=== PATIENT | female | born 1995 | race Two or more races ===

== ENCOUNTER 2023-12-18 21:50 | Inpatient (IN) | payer OTHER ==
[~2023-12-18] VITALS: Ht 172.7 cm; Wt 98.8 kg
[2023-12-18 22:39] LABS: Basophils # (auto) 0.2 10 ^3/uL (0-0.2); Basophils % (auto) 1.4 % (0.0-2.0); Eosinophils # (auto) 0 10 ^3/uL (0-0.8); Eosinophils % (auto) 0.4 % (0.0-7.0); Hematocrit 38.2 % (36.0-46.0); Hemoglobin 13.2 g/dL (12.2-16.2); Lymphocytes # (auto) 1.1 10 ^3/uL (0.4-5.4); Lymphocytes % (auto) 8.8 % (10.0-50.0); Mean Corpuscular Hemoglobin 30.8 pg (28.0-32.0); Mean Corpuscular Hgb Conc. 34.7 g/dL (32.0-36.0); Mean Corpuscular Volume 88.8 fL (80.0-100.0); Monocytes # (auto) 0.6 10 ^3/uL (0-1.3); Monocytes % (auto) 4.4 % (0.0-12.0); Neutrophils # (auto) 10.6 10 ^3/uL (1.6-8.6); Red Cell Distribution Width 13.5 % (11.8-14.3); White Blood Cell 12.5 10^3/uL (4.4-10.8)
[2023-12-18 22:51] LABS: Alanine Aminotransferase 53 U/L (7-40); Albumin 4.5 g/dL (3.2-4.8); Alkaline Phosphatase 149 U/L (46-116); Anion Gap 6 (5-15); Aspartate Aminotransferase 13 U/L (13-40); BUN/Creatinine Ratio 12.3 (10.0-20.0); Bilirubin, Total 0.4 mg/dL (0.2-1.0); Blood Urea Nitrogen 9 mg/dL (9-23); Calcium 9.7 mg/dL (8.5-10.1); Carbon Dioxide 24 mmol/L (20-30); Chloride 109 mmol/L (98-107); Glucose 104 mg/dL (74-106); Potassium 4.1 mmol/L (3.5-5.1); Sodium 139 mmol/L (136-145); Total Protein 7.4 g/dL (5.7-8.2)
[2023-12-18] MEDS: ALBUTEROL SULF 2.5 MG/0.5ML(0.5%) NEB SOLN NEB ONE (23:01)
[2023-12-18] MEDS: IPRATROPIUM BROM 0.5 MG/2.5ML INH SOL NEB ONE (23:01)
[2023-12-19] VITALS (16 sets, daily range): BP systolic 111–137; BP diastolic 58–80; PULSE 90–134; RESP 16–22; TEMP 97.5–98.7; O2SAT 91–98
[2023-12-19] MEDS: IPRATROPIUM BROM 0.5 MG/2.5ML INH SOL NEB ONE (02:42)
[2023-12-19] MEDS: ALBUTEROL SULF 2.5 MG/0.5ML(0.5%) NEB SOLN NEB ONE (02:42)
[2023-12-19] MEDS: methylPREDNISolone SOD SUCC 125 MG/2 ML VL IV ONE (03:35)
[2023-12-19] MEDS: ONDANSETRON HCL 4 MG/2 ML VIAL IV ONE (03:35)
[2023-12-19 03:40] LABS: COVID19 ANTIGEN SOFIA FIA NEGATIVE (NEGATIVE); Rapid Influenza A Negative (Negative); Rapid Influenza B Negative (Negative)
[2023-12-19] MEDS ORDERED: NITROGLYCERIN 0.4 MG SL TAB SL PRN (06:15)
[2023-12-19] MEDS ORDERED: MORPHINE SULFATE INJ 2 MG/ml SYRG IV PRN (06:15)
[2023-12-19] MEDS ORDERED: TEMAZEPAM 15 MG CAP PO PRN (06:15)
[2023-12-19] MEDS: ALBUTEROL SULF 2.5 MG/0.5ML(0.5%) NEB SOLN NEB PRN (06:57)
[2023-12-19] MEDS: IPRATROPIUM BROM 0.5 MG/2.5ML INH SOL NEB PRN (06:58)
[2023-12-19] MEDS: guaiFENesin-DM 100/10mg/5ml SYR PO PRN (07:05)
[2023-12-19] MEDS ORDERED: ALBUAER3 IN (08:58)
[2023-12-19] MEDS ORDERED: MONT-8 PO (08:58)
[2023-12-19] MEDS ORDERED: LEVOTAB51 PO (08:58)
[2023-12-19] MEDS ORDERED: BENZ100C97 PO (08:58)
[2023-12-19] MEDS: methylPREDNISolone SOD SUCC 40 MG/ML VL IV SCH (09:47)
[2023-12-19 10:21] LABS: Hepatitis B Surface Antigen Negative (Negative)
[2023-12-19 10:42] LABS: Hepatitis C Antibody Negative (Negative)
[2023-12-19] MEDS ORDERED: QUET200T45 PO (14:45)
[2023-12-19] MEDS ORDERED: BUSP30TA PO (14:45)
[2023-12-19] MEDS ORDERED: SERT-160 PO (14:45)
[2023-12-19] MEDS: IPRATROPIUM BROM 0.5 MG/2.5ML INH SOL NEB SCH (18:24)
[2023-12-19] MEDS: ALBUTEROL SULF 2.5 MG/0.5ML(0.5%) NEB SOLN NEB SCH (18:24)
[2023-12-20] VITALS (14 sets, daily range): BP systolic 118–134; BP diastolic 55–70; PULSE 77–119; RESP 15–20; TEMP 97.7–98.1; O2SAT 90–100
[2023-12-20] MEDS: ONDANSETRON HCL 4 MG/2 ML VIAL IV PRN (04:30)
[2023-12-20 08:02] LABS: Chloride 107 mmol/L (98-107); Potassium 3.7 mmol/L (3.5-5.1); Sodium 140 mmol/L (136-145)
[2023-12-20 08:03] LABS: Anion Gap 9 (5-15); Carbon Dioxide 24 mmol/L (20-30)
[2023-12-20 08:04] LABS: Calcium 9.7 mg/dL (8.5-10.1)
[2023-12-20 08:09] LABS: Blood Urea Nitrogen 12 mg/dL (9-23); Glucose 107 mg/dL (74-106)
[2023-12-20] MEDS: methylPREDNISolone SOD SUCC 40 MG/ML VL IV SCH (08:36)
[2023-12-20] MEDS: busPIRone HCL 10 MG TAB PO SCH (08:36)
[2023-12-20] MEDS: MONTELUKAST SODIUM 10 MG TAB PO SCH (08:36)
[2023-12-20] MEDS: SERTRALINE HCL 50 MG TAB PO SCH (08:37)
[2023-12-20] MEDS ORDERED: FLUT1AER3 IN (12:55)
[2023-12-20] MEDS ORDERED: ALBU0.084 NEB (12:55)
[2023-12-20] MEDS: ACETAMINOPHEN 325 MG TAB PO PRN (20:43)
[2023-12-21] VITALS (21 sets, daily range): BP systolic 126–133; BP diastolic 65–85; PULSE 78–118; RESP 16–20; TEMP 97.6–98.7; O2SAT 90–100
[2023-12-21] MEDS: IOHEXOL 350 MG/ML 100ML IJ ONE (12:30)
[2023-12-22] VITALS (12 sets, daily range): BP systolic 118–131; BP diastolic 63–86; PULSE 80–131; RESP 16–86; TEMP 97.8–98.7; O2SAT 90–100
[2023-12-22] MEDS ORDERED: PRED20TA2 PO (08:47)
== END 2023-12-22 14:00 | disposition home or self-care (01) | DRG 189 ==
LOC: ER 21:50 → TELE 12-19 06:13 → TELE-CENTR 12-19 08:32 → CENTRAL 12-20 19:49
PROVIDERS: ADMIT Nurse Practitioner Acute Care; ATTEND Nurse Practitioner Acute Care
DX: J96.21 Acute and chronic respiratory failure with hypoxia (principal); J45.901 Unspecified asthma with (acute) exacerbation; R65.10 Systemic inflammatory response syndrome (SIRS) of non-infectious origin without acute organ dysfunction; F20.9 Schizophrenia, unspecified; F32.9 Major depressive disorder, single episode, unspecified; F41.9 Anxiety disorder, unspecified; Z20.822 Contact with and (suspected) exposure to COVID-19; E66.01 Morbid (severe) obesity due to excess calories; Z82.5 Family history of asthma and other chronic lower respiratory diseases; Z82.49 Family history of ischemic heart disease and other diseases of the circulatory system; Z68.33 Body mass index [BMI] 33.0-33.9, adult
CPT/HCPCS: 36415; 70490; 71045; 71275; 80048; 80053; 83880; 84484; 85025; 86803; 87340; 87426; 87804; 94060; 94640; 96374; 96375; G0378; J2405

== ENCOUNTER 2024-01-18 15:27 | Inpatient (IN) | payer OTHER ==
[~2024-01-18] VITALS: Ht 172.7 cm; Wt 100.0 kg
[2024-01-18 05:02] VITALS: PULSE 72; RESP 16
[~2024-01-18 15:27] MED LIST: ALBU0.084 NEB; ALBUAER3 IN; BENZ100C97 PO; BUSP30TA PO; FLUT1AER3 IN; LEVOTAB51 PO; MONT-8 PO; PRED20TA2 PO; QUET200T45 PO; SERT-160 PO
[2024-01-18 15:45] VITALS: PULSE 99; RESP 15; O2SAT 94
[2024-01-18] MEDS: SODIUM CHLORIDE 0.9% 1,000 ML IV ONE (15:47)
[2024-01-18 16:15] LABS: Basophils # (auto) 0.1 10 ^3/uL (0-0.2); Basophils % (auto) 0.7 % (0.0-2.0); Eosinophils # (auto) 0.1 10 ^3/uL (0-0.8); Eosinophils % (auto) 1.3 % (0.0-7.0); Hematocrit 42.6 % (36.0-46.0); Hemoglobin 14.5 g/dL (12.2-16.2); Lymphocytes # (auto) 1.9 10 ^3/uL (0.4-5.4); Lymphocytes % (auto) 26.5 % (10.0-50.0); Mean Corpuscular Hemoglobin 29.2 pg (28.0-32.0); Mean Corpuscular Hgb Conc. 34.1 g/dL (32.0-36.0); Mean Corpuscular Volume 85.6 fL (80.0-100.0); Monocytes # (auto) 0.3 10 ^3/uL (0-1.3); Monocytes % (auto) 4.9 % (0.0-12.0); Neutrophils # (auto) 4.7 10 ^3/uL (1.6-8.6); Neutrophils % (auto) 66.6 % (37.0-80.0); Nucleated Red Blood Cells % 0.1 %; Red Blood Cells 4.97 10^6/uL (4.0-5.20); White Blood Cell 7.1 10^3/uL (4.4-10.8)
[2024-01-18 16:31] LABS: Chloride 106 mmol/L (98-107); Potassium 3.5 mmol/L (3.5-5.1); Sodium 137 mmol/L (136-145)
[2024-01-18 16:32] LABS: Anion Gap 8 (5-15); Carbon Dioxide 23 mmol/L (20-30)
[2024-01-18 16:33] LABS: Calcium 10.1 mg/dL (8.7-10.4)
[2024-01-18 16:37] LABS: Glucose 151 mg/dL (74-106)
[2024-01-18 16:38] LABS: BUN/Creatinine Ratio 11.5 (10.0-20.0); Blood Urea Nitrogen 10 mg/dL (9-23)
[2024-01-18] MEDS ORDERED: HYDROmorphone HCL 2 MG/ML VL/or syr IV PRN (18:00)
[2024-01-18] MEDS ORDERED: DOCUSATE SOD 100 MG CAP PO PRN (18:00)
[2024-01-18 20:43] LABS: Urine Bacteria None Seen /hpf (None Seen)
[2024-01-18 20:50] LABS: Urine Blood Negative /uL (Negative); Urine Clarity Turbid (Clear); Urine Color Light-Yellow (Yellow); Urine Hyaline Cast FEW /lpf (0 - 2); Urine Mucus FEW (None Seen); Urine Protein, UAD Negative (Negative); Urine Specific Gravity 1.011 (1.001-1.035); Urine Urobilinogen Normal (Negative); Urine WBC 2 /hpf (0 - 5); Urine pH 6.5 (5.0-9.0)
[2024-01-18] MEDS: IOHEXOL 350 MG/ML 100ML IJ ONE (21:37)
[2024-01-18] MEDS: SODIUM CHLOR 0.9% PF (SALINE LOCK) 10ML VIAL/SYR IV SCH (22:20)
[2024-01-19] VITALS (15 sets, daily range): BP systolic 119–126; BP diastolic 69–71; PULSE 70–103; RESP 16–22; TEMP 98.1–98.9; O2SAT 4–100
[2024-01-19] MEDS: ACETAMINOPHEN 325 MG TAB PO PRN (04:46)
[2024-01-19] MEDS: OMNIPAQUE 12mg/ml 500ml ORAL SOLUTION PO ONE (07:13)
[2024-01-19] MEDS: ENOXAPARIN SOD 40 MG/0.4 ML SYRINGE SC SCH (11:36)
[2024-01-19] MEDS: ALBUTEROL SULF 2.5 MG/0.5ML(0.5%) NEB SOLN NEB SCH (13:24)
[2024-01-19] MEDS: AZITHROMYCIN 500MG/ 250ML 250 ML IV ONE (15:03)
[2024-01-19] MEDS: cefTRIAXone 1GM/50ML D5W 50 ML IV ONE (17:39)
[2024-01-19] MEDS: HYDROcodone-ACET 5/325MG TAB PO PRN (20:45)
[2024-01-20] VITALS (21 sets, daily range): BP systolic 108–142; BP diastolic 67–82; PULSE 81–119; RESP 15–20; TEMP 98.4–99.2; O2SAT 94–100
[2024-01-20] MEDS: TEMAZEPAM 15 MG CAP PO ONE (00:48)
[2024-01-20] MEDS: cefTRIAXone 1GM/50ML D5W 50 ML IV SCH (08:20)
[2024-01-20] MEDS: AZITHROMYCIN 500MG/ 250ML 250 ML IV SCH (10:00)
[2024-01-20] MEDS: DexAMETHasone SOD PHOS 10MG/1ML VIAL INJ IV SCH (10:00)
[2024-01-20] MEDS: DexAMETHasone SOD PHOS 10MG/1ML VIAL INJ IV ONE (12:04)
[2024-01-20] MEDS: SERTRALINE HCL 50 MG TAB PO SCH (12:04)
[2024-01-20] MEDS: ONDANSETRON HCL 4 MG/2 ML VIAL IV PRN (13:46)
[2024-01-21] VITALS (14 sets, daily range): BP systolic 123–136; BP diastolic 65–79; PULSE 87–109; RESP 16–20; TEMP 98.3–99; O2SAT 93–100
[2024-01-21] MEDS ORDERED: AZIT500T66 PO (09:47)
[2024-01-21] MEDS ORDERED: PRED20TA2 PO (09:47)
== END 2024-01-21 18:00 | disposition home or self-care (01) | DRG 189 ==
LOC: EDUNIT# 15:27 → EDBD 15:27 → ER 15:27 → TELE 18:00 → TELE-CENTR 01-19 02:30
PROVIDERS: ADMIT Internal Medicine; ATTEND Family Medicine
DX: J96.21 Acute and chronic respiratory failure with hypoxia (principal); J18.9 Pneumonia, unspecified organism; G93.41 Metabolic encephalopathy; J45.901 Unspecified asthma with (acute) exacerbation; J44.1 Chronic obstructive pulmonary disease with (acute) exacerbation; J93.9 Pneumothorax, unspecified; G93.1 Anoxic brain damage, not elsewhere classified; J44.0 Chronic obstructive pulmonary disease with (acute) lower respiratory infection; R55 Syncope and collapse; F41.9 Anxiety disorder, unspecified; E66.9 Obesity, unspecified; F20.9 Schizophrenia, unspecified; F32.A Depression, unspecified; Z82.49 Family history of ischemic heart disease and other diseases of the circulatory system; Z82.5 Family history of asthma and other chronic lower respiratory diseases; Z68.32 Body mass index [BMI] 32.0-32.9, adult; Z83.3 Family history of diabetes mellitus
CPT/HCPCS: 36415; 70450; 70551; 71045; 71275; 80048; 81001; 81025; 85025; 93005; 93306; 93886; 94640; 95819; 99291; G0378; J1100; J2405

== ENCOUNTER 2024-06-11 17:51 | Emergency (ER) | payer MEDICAID, OTHER ==
[~2024-06-11] VITALS: Ht 172.7 cm; Wt 102.5 kg
[~2024-06-11 17:51] MED LIST changes: +AZIT500T66 PO; -BENZ100C97 PO; -BUSP30TA PO; -LEVOTAB51 PO; -MONT-8 PO; -QUET200T45 PO
[2024-06-11] MEDS: IPRATROPIUM BROM 0.5 MG/2.5ML INH SOL NEB ONE ×2 (18:32→21:33)
[2024-06-11] MEDS: ALBUTEROL SULF 2.5 MG/0.5ML(0.5%) NEB SOLN NEB ONE ×2 (18:32→21:33)
--- NOTE | 2024-06-11 18:52 | DVH ---
CHEST RADIOGRAPH Indication: sob Technique: Frontal and lateral view of the chest was obtained Comparison: None FINDINGS: Lines and Tubes: None Lungs: Questionable mild interstitial pulmonary edema. Pleura: No effusion. No pneumothorax. Cardiomediastinal contours: Unremarkable Bones: Unremarkable IMPRESSION: 1. Questionable mild interstitial pulmonary edema
[2024-06-11] MEDS ORDERED: AZIT-43 PO (19:23)
--- NOTE | 2024-06-11 19:23 | ED.PDOC ---
SOB-HPI HPI Comments 29-YEAR-OLD ASTHMATIC FEMALE PRESENTS TO THE ED CHIEF COMPLAINT SHORTNESS OF BREATH. PATIENT STATES HAS BEEN USING HER ALBUTEROL INHALER MORE RECENTLY OVER THE PAST 3 DAYS. SHE REPORTS NO KNOWN FEVERS, OR DIFFICULTY BREATHING. DENIES NAUSEA, VOMITING, RECENT TRAVEL OR ILL CONTACTS. DENIES CHEST PAIN. Chief Complaint: Asthma Time Seen by MD: 18:05 Primary Care Provider: UNKNOWN Reviewed notes: Nurses Notes, Medications, Allergies Mode of Arrival: Ambulatory Past Medical History PAST MEDICAL HISTORY: Anxiety, Asthma, Depression, Schizophrenia QUALITY CONTROL CLERK History: No Pertinent QUALITY CONTROL CLERK History Family History Family History: Unknown Social History Smoker: Non-Smoker Alcohol: Denies ETOH Use Drugs: Denies Drug Use Constitutional: denies: chills, diaphoresis, fatigue, fever, malaise, sweats, weakness, others EENTM: denies: blurred vision, double vision, ear bleeding, ear discharge, ear drainage, ear pain, ear ringing, eye pain, eye redness, hearing loss, mouth pain, mouth swelling, nasal discharge, nose bleeding, nose congestion, nose pain, photophobia, tearing, throat pain, throat swelling, voice changes, others Respiratory: reports: cough, shortness of breath, wheezing; denies: hemoptysis, orthopnea, SOB at rest, SOB with excertion, stridor, others Cardiovascular: denies: chest pain, dizzy spells, diaphoresis, Dyspnea on exertion, edema, irregular heart beat, left arm pain, lightheadedness, palpitations, PND, syncope, others Gastrointestinal: denies: abdomen distended, abdominal pain, blood streaked bowels, constipated, diarrhea, dysphagia, difficulty swallowing, hematemesis, melena, nausea, poor appetite, poor fluid intake, rectal bleeding, rectal pain, vomiting, others Genitourinary: denies: abnormal vagina bleeding, burning, dyspareunia, dysuria, flank pain, frequency, hematuria, incontinence, pain, , vagina discharge, urgency, others Neurological: denies: dizziness, fainting, headache, left sided numbness, left sided weakness, numbness, paresthesia, pre-existing deficit, right sided numbness, right sided weakness, seizure, speech problems, tingling, tremors, weakness, others Musculoskeletal: denies: back pain, gout, joint pain, joint swelling, muscle pain, muscle stiffness, neck pain, others Integumetry: denies: bruises, change in color, change in hair/nails, dryness, laceration, lesions, lumps, rash, wounds, others Allergic/Immunocompromised: denies: Difficulty Healing, Frequent Infections, Hives, Itching, others Hematologic/Lymphatic: denies: anemia, blood clots, easy bleeding, easy bruising, swollen glands, others Endocrine: denies: excessive hunger, excessive sweating, excessive thirst, excessive urination, flushing, intolerance to cold, intolerance to heat, unexplained weight gain, unexplained weight loss, others Psychiatric: denies: anxiety, bipolar disorder, depression, hopeless, panic disorder, schizophrenia, sleepless, suicidal, others Physical Exam General Appearance: No Apparent Distress, Normal HEENT: Normal ENT Inspection, Pharynx Normal, TMs Normal Neck: Full Range of Motion, Non-Tender, Normal, Normal Inspection Respiratory: Chest Non-Tender, Expiration, Inspiration, No Accessory Muscle Use, No Respiratory Distress, Wheezing Cardiovascular: No Edema, No JVD, No Murmur, No Gallop, Normal Peripheral Pulses, Regular Rate/Rhythm Breast Exam: Deferred Gastrointestinal: No Organomegaly, Non Tender, No Pulsatile Mass, Normal Bowel Sounds, Soft Genitalia: Deferred Pelvic: Deferred Rectal: Deferred Extremities: Normal capillary refill, Normal inspection, Normal range of lillian on, Non-tender, No pedal edema Musculoskeletal : Apperance: Normal Neurologic: Alert, ship yard electrical person II-XII nml as Tested, No Motor Deficits, Normal Affect, Normal Mood, No Sensory Deficits Cerebellar Function: Normal Reflexes: Normal Skin: Dry, Normal Color, Warm Lymphatic: No Adenopathy Was a procedure done? Was a procedure done?: No Differential Dx Differential Diagnosis: Anxiety, Asthma, Bronchitis, Pneumonia, Sinusitis, Allergic Rhinitis X-Ray, Labs, Meds, VS Vital Signs Date Time Temp Pulse Resp B/P (MAP) Pulse Ox O2 Delivery O2 Flow Rate FiO2 06/11/24 18:33 18 100 Room Air* 0 21 06/11/24 18:33 100 Room Air* 0 21 06/11/24 18:02 98.1 106 17 142/103 (116) 98 Current Medications Medications (Trade) Dose Ordered Sig/Kasandra Route Start Time Stop Time Status Last Admin Ipratropium Mcdermitt (Atrovent Medneb) 0.5 mg ONCE ONCE NEB 1/2/25 18:15 06/11/24 18:16 DC 06/11/24 18:32 Albuterol (Ventolin Medneb) 5 mg ONCE ONCE NEB 06/11/24 18:15 06/11/24 18:16 DC 06/11/24 18:32 X-Ray, Labs, Meds, VS Comment PATIENT GIVEN NEBULIZER TREATMENT REPORTS IMPROVEMENT IN WHEEZING LUNG SOUND CLEAR AND EQUAL BILATERAL. PATIENT GIVEN SOLU-MEDROL 125 MG IM. CHEST X-RAY DOES SHOW QUESTIONABLE FLUID INTERSTITIAL COULD BE VIRAL VERSUS BACTERIAL HOWEVER WE WILL START PATIENT ON AZITHROMYCIN. ADVISED PATIENT TO FOLLOW UP WITH PCP IN 2-3 DAYS FOR RE-EVALUATION ER RETURN PRECAUTIONS GIVEN PATIENT INDICATED UNDERSTANDING AGREES WITH DISCHARGE PLAN OF CARE. Time of 1ST Reevaluation: 19:23 Reevaluation 1ST: Unchanged Time of 2ND Reevaluation: 20:06 Reevaluation 2ND: Improved Patient Education/Counseling: Diagnosis, Treatment, Prognosis, Need For Follow Up Family Education/Counseling: Diagnosis, Treatment, Prognosis, Need For Follow Up Departure 1 Departure Time of Disposition: 19:23 Impression: Primary Impression: Acute asthma Disposition: 01 HOME / SELF CARE / HOMELESS Condition: Stable e-Prescriptions Azithromycin (Azithromycin) 250 Mg Tab 250 MG PO DAILY MDD 500 for 5 Days, #6 TAB 0 Refills 2 TABLETS ORALLY ON DAY ONE, THEN 1 TABLET ORALLY DAILY FOR 4 DAYS Prov: TOLU GODLSTEIN 06/11/24 Discharged With: Self Critical Care Note Critical Care Time?: No Stability Stability form required: No Heart Score Heart Score: Heart Score Response (Comments) Value History N/A 0 EKG N/A 0 Age <45 0 Risk Factors N/A 0 Troponin N/A 0 Total 0 TOLU GOLDSTEIN Jun 11, 2024 19:23
[2024-06-11 21:19] VITALS: BP 146/91; PULSE 85; TEMP 98.3
[2024-06-11] MEDS: methylPREDNISolone SOD SUCC 125 MG/2 ML VL IM ONE (21:25)
[2024-06-11 21:33] VITALS: RESP 18; O2SAT 100
[2024-06-11] MEDS ORDERED: ALBU1.258 IN (22:00)
[2024-06-11] MEDS ORDERED: IPR002IS HHN (22:00)
== END 2024-06-11 22:04 | disposition home or self-care (01) ==
LOC: ER 17:51
DX: J45.909 Unspecified asthma, uncomplicated (principal)
CPT/HCPCS: 71046; 94640; 96372; 99284; J2919

== ENCOUNTER 2024-09-07 22:26 | Emergency (ER) | payer MEDICAID ==
[~2024-09-07] VITALS: Ht 172.7 cm; Wt 100.0 kg
[~2024-09-07 22:26] MED LIST changes: +AZIT-43 PO
--- NOTE | 2024-09-07 23:39 | DVH ---
CHEST RADIOGRAPH Indication: cp Technique: Single frontal view of the chest was obtained Comparison: XY CHEST PORTABLE on DOS: 01/18/24, XY CHEST XRAY 1 VIEW on DOS: 12/20/23, XY CHEST PORTABL E on DOS: 12/18/23 FINDINGS: Lines and Tubes: None Lungs: Clear Pleura: No effusion. No pneumothorax. Cardiomediastinal contours: Unremarkable Bones: Unremarkable IMPRESSION: Low lung volumes with bronchovascular crowding. No active cardiopulmonary disease.
--- NOTE | 2024-09-08 00:12 | ED.PDOC ---
History of Present Illness HPI Comments 29 y/o obese F, with a history of anxiety, asthma, and schizophrenia, presents with c/o chest pain, cough, and nasal congestion, today. Patient reports sudden and unprovoked onset of symptoms, this evening. She comments on pain worsening whenever taking a deep breath. Denies any nausea, vomiting, shortness of breath, or other associated symptoms or modifiers at this time. Chief Complaint: Chest Pain Time Seen by MD: 22:20 Primary Care Provider: UNKNOWN Reviewed Notes: Nurses Notes, Medications, Allergies Allergies: Coded Allergies: NO KNOWN ALLERGIES (Unverified , 12/18/23) Home Meds Active Scripts Azithromycin (Azithromycin) 250 Mg Tab, 250 MG PO DAILY MDD 500 for 5 Days, #6 TAB 0 Refills 2 TABLETS ORALLY ON DAY ONE, THEN 1 TABLET ORALLY DAILY FOR 4 DAYS Prov:TOLU GOLDSTEIN SKEIN WASHER 06/11/24 Prednisone (Prednisone) 20 Mg Tab, 20 MG PO BID, #14 MG Prov:FLACO HUGHES MD 01/21/24 Azithromycin (Azithromycin) 500 Mg Tab, 1 TAB PO DAILY, #7 TAB Prov:FLACO HUGHES MD 01/21/24 Prednisone (Prednisone) 20 Mg Tab, 20 MG PO BID, #20 MG Prov:FLACO HUGHES MD 12/22/23 Albuterol Sulfate (Albuterol Sulfate) 0.083 % Neb, 1 VIAL NEB Q4HPRN, #50 VIAL Prov:NIKUNJ POTTER MD 12/20/23 Lbieqomfryh-Bscxwqjvzzto-Krkbb (Trelegy Ellipta 100-62.5-25 Mcg/INH) 1 Aer Aer, 1 AER IN DAILY for 30 Days, #30 AER Prov:NIKUNJ POTTER MD 12/20/23 Reported Medications Sertraline Hcl (Sertraline Hcl) 100 Mg Tab, 1 TAB PO DAILY 12/19/23 Albuterol Sulfate (VENTOLIN MDI) 90 Mcg Ih, 90 MCG IN PRN, INH 12/19/23 Information Source: Patient Mode of Arrival: Ambulatory Past Medical History PAST MEDICAL HISTORY: Anxiety, Asthma, Depression, Schizophrenia Past Medical History (Other): obesity Surgical History: Denies all surgeries PERSONAL CHEF History: No Pertinent PERSONAL CHEF History Family History Family History: Unknown Social History Smoker: Non-Smoker Alcohol: Denies ETOH Use Drugs: Denies Drug Use Lives In: Home All Other Systems: Reviewed and Negative (Comprehensive systems review obtained and negative except for what is stated in the HPI.) Physical Exam General Appearance: No Apparent Distress, Obese HEENT: Normal ENT Inspection, Pharynx Normal, TMs Normal Neck: Full Range of Motion, Non-Tender, Normal, Normal Inspection Respiratory: Chest Non-Tender, Lungs Clear, No Accessory Muscle Use, No Respiratory Distress, Normal Breath Sounds Cardiovascular: No Edema, No JVD, No Murmur, No Gallop, Normal Peripheral Pulses, Regular Rate/Rhythm Breast Exam: Deferred Gastrointestinal: No Organomegaly, Non Tender, No Pulsatile Mass, Normal Bowel Sounds, Soft Genitalia: Deferred Pelvic: Deferred Rectal: Deferred Extremities: No calf tenderness, Normal capillary refill, Normal inspection, Normal range of motion, Non-tender, No pedal edema Musculoskeletal : Apperance: Normal Neurologic: Alert, fire official II-XII nml as Tested, No Motor Deficits, Normal Affect, Normal Mood, No Sensory Deficits Cerebellar Function: Normal Reflexes: Normal Skin: Dry, Normal Color, Warm Lymphatic: No Adenopathy Was a procedure done? Was a procedure done?: No EKG EKG #1: Pulse Rate (adult): 106 Story: Normal Cardiac Rhythm: ST Block: None Hypertrophy: None ST: Normal EKG #2: Pulse Rate (adult): 104 Story: Normal Cardiac Rhythm: ST Block: None Hypertrophy: None ST: Normal Differential Dx Considerations may include: [place], PE, ACS, URI, PNA, viral syndrome, anxiety, angina, among others X-Ray, Labs, Meds, VS Vital Signs Date Time Temp Pulse Resp B/P (MAP) Pulse Ox O2 Delivery O2 Flow Rate FiO2 09/07/24 23:40 84 09/07/24 22:40 97.3 107 20 134/85 (101) 97 97.3 09/07/24 22:33 106 Lab Test 09/07/24 23:48 09/07/24 22:59 Range/Units Troponin I High Sensitivity Pending < 3 L </=34 ng/L [facility] [id number] [place] [id number] Ph: [phone] DIAGNOSTIC IMAGING Diagnostic Imaging Report : [id number] Signed PATIENT: JOSUE BARTON ACCT: [id number] UNIT: [id number] : 1995 LOC: ER ROOM / BED: / AGE / SEX: 29 / F ADM STATUS: REG ER SERVICE 05 ORDERING PHYSICIAN: TAMMY HERNANDEZ MD PROCEDURE(s): CXRP - CHEST PORTABLE REASON: cp ORDER NUMBER(s): [id number], ACCESSION NUMBER(s): [id number] CHEST RADIOGRAPH Indication: cp Technique: Single frontal view of the chest was obtained Comparison: XY CHEST PORTABLE on DOS: 01/18/24, XY CHEST XRAY 1 VIEW on DOS: 12/20/23, XY CHEST PORTABLE on DOS: 12/18/23 FINDINGS: Lines and Tubes: None Lungs: Clear Pleura: No effusion. No pneumothorax. Cardiomediastinal contours: Unremarkable Bones: Unremarkable IMPRESSION: Low lung volumes with bronchovascular crowding. No active cardiopulmonary disease. ATED BY: KARL JARRETT DO DICTATED DATE/TIME: 09/07/242336 SIGNED BY: KARL JARRETT DO SIGNED DATE/TIME: 09/07/242336 CC: Time of 1ST Reevaluation: 22:50 Reevaluation 1ST: Unchanged Patient Education/Counseling: Diagnosis, Treatment Family Education/Counseling: No Family Present Additional Information Previous medical encounters reviewed: June 11, 2024 encounter for acute asthma The following tests were ordered, and results were reviewed by me: CXR, trop onin, EKG Additional Information was gathered from interviewing the following independent historians: n/a I reviewed and agreed with the following test results read by other providers: CXR I discussed treatment and results with medical personnel and: Patient Departure 1 Departure Time of Disposition: 00:13 Impression: Primary Impression: Musculoskeletal chest pain Disposition: 01 HOME / SELF CARE / HOMELESS Condition: Good Discharged With: Self Critical Care Note Critical Care Time?: No Stability Stability form required: No Heart Score Heart Score: Heart Score Response (Comments) Value History N/A 0 EKG N/A 0 Age N/A 0 Risk Factors N/A 0 Troponin N/A 0 Total 0 I personally scribed for TAMMY HERNANDEZ MD ([email or web address]) on 09/08/24 at 00:12. Electronically submitted by Cl Coombs [email or web address]). TAMMY HERNANDEZ MD Sep 08, 2024 00:12
[2024-09-08 00:40] VITALS: BP 125/65; PULSE 91; RESP 22; TEMP 98.6; O2SAT 100
--- NOTE | 2024-09-09 12:33 | ECG ---
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
--- NOTE | 2024-09-09 12:37 | ECG ---
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
[2024-09-09] MEDS ORDERED: PRED20TA2 PO (18:51)
[2024-09-09] MEDS ORDERED: AZIT-43 PO (18:51)
== END 2024-09-08 00:46 | disposition home or self-care (01) ==
LOC: ER 22:28
DX: R07.89 Other chest pain (principal); R09.81 Nasal congestion; R05.9 Cough, unspecified; F41.9 Anxiety disorder, unspecified; F32.A Depression, unspecified; F20.9 Schizophrenia, unspecified; J45.909 Unspecified asthma, uncomplicated; E66.9 Obesity, unspecified; Z79.52 Long term (current) use of systemic steroids; Z79.899 Other long term (current) drug therapy
CPT/HCPCS: 36415; 71045; 84484; 93005

== ENCOUNTER 2024-11-19 21:41 | Emergency (ER) | payer BC, MEDICAID ==
[~2024-11-19] VITALS: Ht 172.7 cm; Wt 105.7 kg
[2024-11-19 22:48] LABS: COVID19 ANTIGEN SOFIA FIA NEGATIVE (NEGATIVE); Rapid Influenza A Negative (Negative); Rapid Influenza B Negative (Negative)
--- NOTE | 2024-11-19 22:48 | ED.PDOC ---
GI ASSESSMENT HPI Comments This is a 29-year-old female presents to the ED chief complaint flu-like symptoms x2 hours. Patient reports nausea and vomiting denies any other symptoms reports no fevers or chills no chest pain difficulty breathing or shortness of breath notes no cough, sore throat, or shortness of breath. Chief Complaint: Flu like Time Seen by MD: 21:45 Primary Care Provider: UNKNOWN Reviewed Notes: Nurses Notes, Medications, Allergies Allergies: Coded Allergies: NO KNOWN ALLERGIES (Unverified , 12/18/23) Home Meds Active Scripts Ondansetron Odt 4MG Tab (ZOFRAN PO) 4 Mg Tb, 4 MG PO TID PRN for 4 Days, #12 TAB ODT TAB-DISSOLVE IN MOUTH, THEN SWALLOW Prov:TOLU GOLDSTEIN CHIMNEY SUPERVISOR BRICK 11/19/24 Azithromycin (Azithromycin) 250 Mg Tab, 250 MG PO DAILY MDD 500 for 5 Days, #6 TAB 0 Refills 2 TABLETS ORALLY ON DAY ONE, THEN 1 TABLET ORALLY DAILY FOR 4 DAYS Prov:JEWELS MERIDA 09/09/24 Prednisone (Prednisone) 20 Mg Tab, 20 MG PO BID, #20 MG Prov:JEWELS MERIDA 09/09/24 Prednisone (Prednisone) 20 Mg Tab, 20 MG PO BID, #14 MG Prov:FLACO HUGHES MD 01/21/24 Azithromycin (Azithromycin) 500 Mg Tab, 1 TAB PO DAILY, #7 TAB Prov:FLACO HUGHES MD 01/21/24 Albuterol Sulfate (Albuterol Sulfate) 0.083 % Neb, 1 VIAL NEB Q4HPRN, #50 VIAL Prov:NIKUNJ POTTER MD 12/20/23 Xbpmyxbhgam-Ulqbiptgwmwi-Egfok (Trelegy Ellipta 100-62.5-25 Mcg/INH) 1 Aer Aer, 1 AER IN DAILY for 30 Days, #30 AER Prov:NIKUNJ POTTER MD 12/20/23 Reported Medications Sertraline Hcl (Sertraline Hcl) 100 Mg Tab, 1 TAB PO DAILY 12/19/23 Albuterol Sulfate (VENTOLIN MDI) 90 Mcg Ih, 90 MCG IN PRN, INH 12/19/23 Information Source: Patient Mode of Arrival: Ambulatory Past Medical History PAST MEDICAL HISTORY: Anxiety, Asthma, Depression, Schizophrenia Surgical History: Denies all surgeries STATISTICAL ASSISTANT History: No Pertinent STATISTICAL ASSISTANT History Family History Family History: Unknown Social History Smoker: Non-Smoker Alcohol: Denies ETOH Use Drugs: Denies Drug Use Lives In: Home Constitutional: denies: chills, diaphoresis, fatigue, fever, malaise, sweats, weakness, others EENTM: denies: blurred vision, double vision, ear bleeding, ear discharge, ear drainage, ear pain, ear ringing, eye pain, eye redness, hearing loss, mouth pain, mouth swelling, nasal discharge, nose bleeding, nose congestion, nose pain, photophobia, tearing, throat pain, throat swelling, voice changes, others Respiratory: denies: cough, hemoptysis, orthopnea, SOB at rest, shortness of breath, SOB with excertion, stridor, wheezing, others Cardiovascular: denies: chest pain, dizzy spells, diaphoresis, Dyspnea on exertion, edema, irregular heart beat, left arm pain, lightheadedness, palpi tations, PND, syncope, others Gastrointestinal: reports: nausea, vomiting; denies: abdomen distended, abdominal pain, blood streaked bowels, constipated, diarrhea, dysphagia, difficulty swallowing, hematemesis, melena, poor appetite, poor fluid intake, rectal bleeding, rectal pain, others Genitourinary: denies: abnormal vagina bleeding, burning, dyspareunia, dysuria, flank pain, frequency, hematuria, incontinence, pain, , vagina discharge, urgency, others Neurological: denies: dizziness, fainting, headache, left sided numbness, left sided weakness, numbness, paresthesia, pre-existing deficit, right sided numbness, right sided weakness, seizure, speech problems, tingling, tremors, weakness, others Musculoskeletal: denies: back pain, gout, joint pain, joint swelling, muscle pain, muscle stiffness, neck pain, others Integumetry: denies: bruises, change in color, change in hair/nails, dryness, laceration, lesions, lumps, rash, wounds, others Allergic/Immunocompromised: denies: Difficulty Healing, Frequent Infections, Hives, Itching, others Hematologic/Lymphatic: denies: anemia, blood clots, easy bleeding, easy bruising, swollen glands, others Endocrine: denies: excessive hunger, excessive sweating, excessive thirst, excessive urination, flushing, intolerance to cold, intolerance to heat, unexp lained weight gain, unexplained weight loss, others Psychiatric: denies: anxiety, bipolar disorder, depression, hopeless, panic disorder, schizophrenia, sleepless, suicidal, others Physical Exam General Appearance: No Apparent Distress, Normal HEENT: Pharynx Normal Neck: Full Range of Motion, Non-Tender Respiratory: Lungs Clear, No Respiratory Distress, Normal Breath Sounds Cardiovascular: No Edema, No Murmur, Normal Peripheral Pulses, Regular Rate/Rhythm Breast Exam: Deferred Gastrointestinal: No Organomegaly, Non Tender, No Pulsatile Mass, Normal Bowel Sounds, Soft Genitalia: Deferred Pelvic: Deferred Rectal: Deferred Extremities: Normal capillary refill, Normal inspection, Normal range of motion, Non-tender, No pedal edema Musculoskeletal : Apperance: Normal Neurologic: Alert, No Motor Deficits, Normal Affect, Normal Mood, No Sensory Deficits Cerebellar Function: Normal Reflexes: Normal Skin: Dry, Normal Color, Warm Lymphatic: No Adenopathy Was a procedure done? Was a procedure done?: No GI differential Dx Differential Diagnosis: Gastroenteritis, Food Poisoning, Bacterial, Parasitic, Viral X-Ray, Labs, Meds, VS Vital Signs Date Time Temp Pulse Resp B/P (MAP) Pulse Ox O2 Delivery O2 Flow Rate FiO2 11/20/24 00:05 73 18 98 11/20/24 00:05 98.4 73 18 137/78 (97) 98 98.4 11/19/24 21:41 97.7 79 16 158/79 (105) 97 97.7 Lab Test 11/19/24 22:05 Range/Units Influenza Type A Antigen Negative Negative Influenza Type B Antigen Negative Negative SARS-CoV-2 Antigen (Rapid) Negative NEGATIVE Current Medications Medications (Trade) Dose Ordered Sig/Kasandra Route Start Time Stop Time Status Last Admin Ondansetron HCl (Zofran Po) 4 mg ONCE ONCE PO 11/19/24 22:30 11/19/24 22:31 DC 11/19/24 23:42 X-Ray, Labs, Meds, VS Comment Patient given Zofran 4 mg sublingual able to tolerate fluids. Influenza and COVID swab negative likely viral gastrointestinal. Script trial of Zofran 3 times a day as needed advised take medications as prescribed side effects discussed. Rest increase p.o. fluids with electrolytes as tolerated light diet until tolerated. Follow up with your PCP in 2-3 days. ER return precautions given patient indicates understanding agrees with discharge plan of care Time of 1ST Reevaluation: 22:00 Reevaluation 1ST: Unchanged Time of 2ND Reevaluation: 23:51 Reevaluation 2ND: Improved Patient Education/Counseling: Diagnosis, Treatment, Prognosis, Need For Follow Up Family Education/Counseling: No Family Present Departure 1 Departure Time of Disposition: 23:51 Impression: Primary Impression: Gastroenteritis Disposition: 01 HOME / SELF CARE / HOMELESS Condition: Stable e-Prescriptions Ondansetron Odt 4MG Tab (ZOFRAN PO) 4 Mg Tb 4 MG PO TID PRN for 4 Days, #12 TAB ODT TAB-DISSOLVE IN MOUTH, THEN SWALLOW Prov: TOLU GOLDSTEIN 11/19/24 Discharged With: Self Critical Care Note Critical Care Time?: No Stability Stability form required: TOLU Nino Nov 19, 2024 22:48
[2024-11-19] MEDS: ONDANSETRON ODT 4 MG TAB PO ONE (23:42)
[2024-11-19] MEDS ORDERED: ZOFR4T PO (23:52)
[2024-11-20 00:05] VITALS: BP 137/78; PULSE 73; RESP 18; TEMP 98.4; O2SAT 98
== END 2024-11-20 00:10 | disposition home or self-care (01) ==
LOC: ER 21:41 → EEVIPCON 21:41 → ER 11-20 00:10
DX: K52.9 Noninfective gastroenteritis and colitis, unspecified (principal); F41.9 Anxiety disorder, unspecified; F32.A Depression, unspecified; F20.9 Schizophrenia, unspecified; J45.909 Unspecified asthma, uncomplicated; Z20.822 Contact with and (suspected) exposure to COVID-19; Z79.52 Long term (current) use of systemic steroids; Z79.899 Other long term (current) drug therapy
CPT/HCPCS: 36415; 87426; 87804; 99283; Q0162

== ENCOUNTER 2025-01-19 07:07 | Outpatient (CLI) | payer BC, MEDICAID ==
[2025-01-19 07:45] LABS: Urine Protein, UAD Negative (Negative)
[2025-01-19 07:48] LABS: Hematocrit 44.0 % (36.0-46.0); Hemoglobin 14.9 g/dL (12.2-16.2); Mean Corpuscular Hemoglobin 28.8 pg (28.0-32.0); Mean Corpuscular Volume 84.7 fL (80.0-100.0); Nucleated Red Blood Cells % 0.1 %
[2025-01-19 08:01] LABS: Alkaline Phosphatase 104 U/L (46-116); Anion Gap 10 (5-15); BUN/Creatinine Ratio 16.3 (10.0-20.0); Bilirubin, Total 0.4 mg/dL (0.2-1.0); Blood Urea Nitrogen 13 mg/dL (9-23); Calcium 9.6 mg/dL (8.7-10.4); Carbon Dioxide 24 mmol/L (20-31); Cholesterol 155 mg/dL (< 200); Glucose 94 mg/dL (74-106); Potassium 3.8 mmol/L (3.5-5.1); Sodium 141 mmol/L (136-145); Total Protein 7.7 g/dL (5.7-8.2)
[2025-01-19 08:17] LABS: Alanine Aminotransferase 45 U/L (7-40); Albumin 5.0 g/dL (3.2-4.8); Chloride 107 mmol/L (98-107); HDL Cholesterol 38 mg/dL (40-59); Triglycerides 184 mg/dL (< 150)
[2025-01-20 15:07] LABS: Chlamydia Trachomatis, NAA Negative (Negative); Neisseria gonorrhoeae, NAA Negative (Negative)
[2025-01-20 16:26] LABS: Hepatitis A Total Antibody Positive (Negative); Hepatitis B Surface Antigen Negative (Negative); Hepatitis C Antibody Negative (Negative)
== END 2025-01-19 17:00 | disposition home or self-care (01) ==
LOC: LAB 07:07
PROVIDERS: ATTEND Nurse Practitioner Family
DX: E55.9 Vitamin D deficiency, unspecified (principal); Z11.3 Encounter for screening for infections with a predominantly sexual mode of transmission; Z00.01 Encounter for general adult medical examination with abnormal findings
CPT/HCPCS: 36415; 80053; 80061; 81001; 82306; 83036; 84443; 85025; 86703; 86704; 86706; 86708; 86780; 86803; 87340

== ENCOUNTER 2025-02-10 06:40 | Outpatient (CLI) | payer BC, MEDICAID ==
[2025-02-10 07:17] LABS: Lipase 39 U/L (12-53)
[2025-02-10 07:18] LABS: Amylase 68 U/L (30-118)
== END 2025-02-10 17:00 | disposition home or self-care (01) ==
LOC: LAB 06:40
PROVIDERS: ATTEND Nurse Practitioner Family
DX: R10.84 Generalized abdominal pain (principal)
CPT/HCPCS: 36415; 82150; 82941; 83690

== ENCOUNTER 2025-02-23 21:22 | Emergency (ER) | payer BC, MEDICAID ==
[~2025-02-23] VITALS: Ht 172.7 cm; Wt 98.1 kg
--- NOTE | 2025-02-23 21:55 | ED.PDOC ---
GI ASSESSMENT HPI Comments 29-year-old female who presents to the ED with chief complaint of nausea vomiting diarrhea Patient states that she has been having nausea vomiting diarrhea for four days Patient states that she has had having four vomiting episodes daily and states vomit is otherwise contains food Patient states that she has been having a diarrhea episodes all day today and states that the diarrhea is otherwise yellow brown in color Patient has a she has been having nausea for the past two days Patient states that she has been having diffuse abdominal pain burning in nature for the past one month. Patient states that she saw PCP and urgent care over the past month and states she was diagnosed with gastritis and given antacids with antinausea medication Past medical history: Asthma The social history: None Medications: Zofran PPIs Social history patient denied EtOH denies tobacco use denies drug use Allergies: sorbitan, Patient denies HPI: Poor Historian. Patient had these symptoms for at least 2-3 months with recurrent gastroenteritis she has been seen and evaluated for this multiple times and no definitive diagnosis was made. Patient states he is presenting today with the same cycle of symptoms that started yesterday. Nausea and vomiting nonbilious nonbloody and yellow color diarrhea. Denies use of drugs or marijuana. REVIEW OF SYSTEMS: CONSTITUTIONAL: Denies acute: fever, diaphoresis, chills, generalized weakness. HEAD: Denies acute: headache, photophobia Eyes: Denies acute: Double vision, vision loss, eye pain, eye discharge. EARS: Denies acute: tinnitus, hearing loss, ear discharge, ear pain, THROAT: Denies acute: sore throat, swelling, difficulty swallowing , pain with swallowing, change in voice. NECK: Denies acute: neck pain, neck swelling, stiff neck. HEART: Denies acute : chest pain, palpitations, LUNGS: Denies acute: SOB, wheezing, cough, hemoptysis ABDOMEN: Denies acute: melena , hematemesis, hematochezia SKIN: Denies acute: rash, redness, lesions, itchiness. EXTREMITIES: Denies acute: calf pain, numbness, tingling, weakness, denies pain in extremity. Denies acute: Low back pain. Neuro: Denies acute: focal neurological deficit, motor or sensory focal neurological deficit, tremors, seizure like activity, confusion, dizziness, change in mental status, loss of bowel or bladder function, cauda equina like symptoms. : Denies acute: dysuria, hematuria, flank pain, increase in urinary frequency. PSYCH: Denies acute: hallucination, suicidal ideation, homicidal ideation. FEMALE: Denies acute: abnormal vaginal bleeding, foul odor, unusual discharge. PHYSICAL EXAM: General: ----[id number]----acute distress, awake and alert. Head: normocephalic, atraumatic. Neck: supple, trachea is midline, no swelling. Throat: Normal phonation. Eyes:, no erythema, no purulent discharge, no proptosis, no icterus. Heart: regular rate, regular rhythm, no significant murmur appreciated. Lungs: no apparent respiratory distress, Able to speak in full sentences. No wheezing, no rhonchi, no crackles. No stridors Clear to auscultation bilaterally. Abdomen: Generalized nonspecific mild tender to palpation, non distended, soft, no guarding, no rebound, + bowel sounds. Neuro: Awake, Alert, oriented to name, self, situation, follows commands GCS=15. Speech is normal. Skin: no petechia, no purpura, no cyanosis, non-pale, not jaundice. Lower extremities: --no - Pitting edema no deformity, no focal swelling, no calf TTP. Makes eye contact. moves all four extremities. Face: no apparent facial droop. Ambulating in the ED independently. ED COURSE: DISCLAIMER: This medical document was created using an electronic medical record system with voice recognition software and computerized dictation system. Although this document has been carefully reviewed, there might still be some phonetic and typographical errors. Occasional wrong-word or "sound-alike" substitutions may have occurred due to the inherent limitations of voice recognition software. These areas are purely typographical due to imperfections of the software programs and do not reflect any compromise in the patient's medical care. Please read the chart carefully and recognize, using context, where these substitutions have occurred. Chief Complaint: Nausea/Vomiting Time Seen by MD: 22:01 Primary Care Provider: UNKNOWN Reviewed Notes: Medications, Allergies Allergies: Coded Allergies: Dupilumab (Verified Allergy, Unknown, 02/23/25) Sorbitan (Verified Allergy, Unknown, 02/23/25) Home Meds Active Scripts Azithromycin (Azithromycin) 250 Mg Tab, 250 MG PO DAILY MDD 500 for 5 Days, #6 TAB 0 Refills 2 TABLETS ORALLY ON DAY ONE, THEN 1 TABLET ORALLY DAILY FOR 4 DAYS Prov:JEWELS MERIDA EXPRESSIVE MUSIC THERAPIST 09/09/24 Prednisone (Prednisone) 20 Mg Tab, 20 MG PO BID, #20 MG Prov:JEWELS MERIDAP 09/09/24 Prednisone (Prednisone) 20 Mg Tab, 20 MG PO BID, #14 MG Prov:FLACO HUGHES MD 01/21/24 Azithromycin (Azithromycin) 500 Mg Tab, 1 TAB PO DAILY, #7 TAB Prov:FLACO HUGHES MD 01/21/24 Albuterol Sulfate (Albuterol Sulfate) 0.083 % Neb, 1 VIAL NEB Q4HPRN, #50 VIAL Prov:NIKUNJ POTTER MD 12/20/23 Aprpyzsbalf-Hdujmbiwjngp-Bwikd (Trelegy Ellipta 100-62.5-25 Mcg/INH) 1 Aer Aer, 1 AER IN DAILY for 30 Days, #30 AER Prov:NIKUNJ POTTER MD 12/20/23 Reported Medications Sertraline Hcl (Sertraline Hcl) 100 Mg Tab, 1 TAB PO DAILY 12/19/23 Albuterol Sulfate (VENTOLIN MDI) 90 Mcg Ih, 90 MCG IN PRN, INH 12/19/23 Information Source: Patient Mode of Arrival: Ambulatory Past Medical History PAST MEDICAL HISTORY: Anxiety, Asthma, Depression, Schizophrenia Surgical History: Denies all surgeries ALCOH[employer] LAW ENFORCEMENT AGENT History: No Pertinent ALCO[employer] LAW ENFORCEMENT AGENT History Family History Family History: Unknown Social History Smoker: Non-Smoker Alcohol: Denies ETOH Use Drugs: Denies Drug Use Lives In: Home Was a procedure done? Was a procedure done?: No X-Ray, Labs, Meds, VS Vital Signs Date Time Temp Pulse Resp B/P (MAP) Pulse Ox O2 Delivery O2 Flow Rate FiO2 02/23/25 21:22 98.7 103 18 134/86 96 98.7 Lab Test 02/23/25 22:05 02/23/25 21:50 Range/Units White Blood Count 10.0 4.4-10.8 10^3/uL Red Blood Count 5.29 H 4.0-5.20 10^6/uL Hemoglobin 15.3 12.2-16.2 g/dL Hematocrit 44.9 36.0-46.0 % Mean Corpuscular Volume 85.0 80.0-100.0 fL Mean Corpuscular Hemoglobin 29.0 28.0-32.0 pg Mean Corpuscular Hemoglobin Concent 34.1 32.0-36.0 g/dL Red Cell Distribution Width 13.6 11.8-14.3 % Platelet Count 257 140-450 10^3/uL Mean Platelet Volume 10.2 6.9-10.8 fL Neutrophils (%) (Auto) 77.2 37.0-80.0 % Lymphocytes (%) (Auto) 15.9 10.0-50.0 % Monocytes (%) (Auto) 5.7 0.0-12.0 % Eosinophils (%) (Auto) 0.7 0.0-7.0 % Basophils (%) (Auto) 0.5 0.0-2.0 % Neutrophils # (Auto) 7.7 1.6-8.6 10 ^3/uL Lymphocytes # (Auto) 1.6 0.4-5.4 10 ^3/uL Monocytes # (Auto) 0.6 0-1.3 10 ^3/uL Eosinophils # (Auto) 0.1 0-0.8 10 ^3/uL Basophils # (Auto) 0 0-0.2 10 ^3/uL Nucleated Red Blood Cells 0.1 % Sodium Level 140 136-145 mmol/L Potassium Level 4.1 3.5-5.1 mmol/L Chloride Level 104 98-107 mmol/L Carbon Dioxide Level 26 20-31 mmol/L Anion Gap 10 5-15 Blood Urea Nitrogen 14 9-23 mg/dL Creatinine 1.00 0.550-1.02 mg/dL Glomerular Filtration Rate Calc 79 >90 mL/min BUN/Creatinine Ratio 14.0 10.0-20.0 Serum Glucose 93 74-106 mg/dL Lactic Acid Level 1.0 0.4-2.0 mmol/L Calcium Level 9.3 8.7-10.4 mg/dL Total Bilirubin 0.7 0.2-1.0 mg/dL Aspartate Amino Transferase (AST) 21 13-40 U/L Alanine Aminotransferase (ALT) 39 7-40 U/L Alkaline Phosphatase 129 H 46-116 U/L Total Protein 7.9 5.7-8.2 g/dL Albumin 4.8 3.2-4.8 g/dL Lipase 37 12-53 U/L Urine Color Yellow Yellow Urine Clarity Turbid H Clear Urine pH 6.0 5.0-9.0 Urine Specific [place] 1.031 1.001-1.035 Urine Protein 1+ H Negative Urine Ketones Negative Negative Urine Blood Negative Negative /uL Urine Nitrite Negative Negative Urine Bilirubin Negative Negative Urine Urobilinogen 2 H Negative mg/dL Urine Leukocyte Esterase Negative Negative /uL Urine RBC 2 0 - 4 /hpf Urine Microscopic WBC 1 0-5 /HPF Urine Squamous Epithelial Cells Mod <5 /hpf Urine Bacteria None seen None Seen /hpf Urine Mucus Few None Seen Urine Glucose Normal Normal mg/dL Urine Opiates Screen Pending Urine Fentanyl Screen Pending Urine Barbiturates Screen Pending Urine Phencyclidine Screen Pending Urine Amphetamines Screen Pending Urine Benzodiazepines Screen Pending Urine Cocaine Screen Pending Urine Cannabinoids Screen Pending [place] [address] Ph: [phone] DIAGNOSTIC IMAGING Diagnostic Imaging Report : [id number] Signed PATIENT: JOSUE BARTON CACCT: [id number] UNIT: [id number] : 1995 LOC: ER ROOM / BED: / AGE / SEX: 29 / F ADM STATUS: REG ER SERVICE 51 ORDERING PHYSICIAN: RY SIFUENTES DO PROCEDURE(s): ABPL - CT AB PEL WO CON-NO ORAL OR IV REASON: n/v/d abd pain ORDER NUMBER(s): [id number], ACCESSION NUMBER(s): [id number] CLINICAL HISTORY: n/v/d abd pain TECHNIQUE: CT of the abdomen and pelvis was performed without IV contrast. This exam was performed according to our departmental dose optimization program. Up-to-date CT equipment and radiation dose reduction techniques are utilized as appropriate. CTDI 15.1 DLP 968 COMPARISON: None FINDINGS: Abdomen/Pelvis: The spleen, pancreas, adrenal glands, kidneys, and gallbladder are grossly unremarkable. There is diffuse hepatic steatosis. An IUD is noted. The bladder is not well distended and therefore not well evaluated. The abdominal aorta is normal in course and caliber. There are no significant atherosclerotic calcifications. There is no free intraperitoneal air or fluid. There is no enlarged abdominal pelvic lymph node. There is no bowel wall thickening or dilatation. The appendix is normal. Other: The imaged lower thorax is unremarkable. No acute osseous abnormality is evident. Impression: No acute noncontrast CT abnormality in the abdomen or pelvis. Diffuse hepatic steatosis. IUD. ATED BY: ANALISA SOTELO MD DICTATED DATE/TIME: 02/23/252238 SIGNED BY: ANALISA SOTELO MD SIGNED DATE/TIME: 02/23/252238 CC: Time of 1ST Reevaluation: 23:04 Reevaluation 1ST: Improved Patient Education/Counseling: Diagnosis, Treatment Family Education/Counseling: No Family Present Departure 1 Departure Time of Disposition: 22:17 Impression: Primary Impression: Nausea vomiting and diarrhea Disposition: 01 HOME / SELF CARE / HOMELESS Condition: Stable Additional Instructions: Additional instructions: Please read all instructions provided in this packet carefully. You MUST follow-up with your primary care/family doctor in 1 to 2 days. If you are unable to see your primary care/family doctor, please return to our emergency room for re-assessment and re-evaluation in 1 to 2 days. Return to the emergency room here in our facility or to the nearest ER [facility] if your symptoms change or worsen. CONSULTATIONS: you MUST Follow-up for consultation as soon as possible with: --gastroenterology in 1-2 days. Please call for appointment. You MUST call the consultants office yourself to make an appointment. You may need to arrange that through your insurance and/or your primary/family doctor. If you are unable to see the weight loss sales consultant in 1 to 2 days, you must return to our emergency room (or any other ER of your choice) for re-assessment and re- evaluation. Adequate fluid hydration. Although you have been discharged from the Emergency Department, this does not mean that you have a "clean bill of health". No definitive diagnosis for your symptoms has been made today. It is possible that you are in the process of developing a serious illness. This is why you must return to the ED without fail if any new or worsening symptoms develop. Liquid diet in next 72 hours. Below is a copy of your radiological report for follow up: [facility] [id number] [facility] [address] Ph: [phone] DIAGNOSTIC IMAGING Diagnostic Imaging Report : [id number] Signed PATIENT: JOSUE BARTON ACCT: [id number] UNIT: [id number] : 1995 LOC: ER ROOM / BED: / AGE / SEX: 29 / F ADM STATUS: REG ER SERVICE 51 ORDERING PHYSICIAN: RY SIFUENTES DO PROCEDURE(s): ABPL - CT AB PEL WO CON-NO ORAL OR IV REASON: n/v/d abd pain ORDER NUMBER(s): [id number], ACCESSION NUMBER(s): [id number] CLINICAL HISTORY: n/v/d abd pain TECHNIQUE: CT of the abdomen and pelvis was performed without IV contrast. This exam was performed according to our departmental dose optimization program. Up-to-date CT equipment and radiation dose reduction techniques are utilized as appropriate. CTDI 15.1 DLP 968 COMPARISON: None FINDINGS: Abdomen/Pelvis: The spleen, pancreas, adrenal glands, kidneys, and gallbladder are grossly unremarkable. There is diffuse hepatic steatosis. An IUD is noted. The bladder is not well distended and therefore not well evaluated. The abdominal aorta is normal in course and caliber. There are no significant atherosclerotic calcifications. There is no free intraperitoneal air or fluid. There is no enlarged abdominal pelvic lymph node. There is no bowel wall thickening or dilatation. The appendix is normal. Other: The imaged lower thorax is unremarkable. No acute osseous abnormality is evident. Impression: No acute noncontrast CT abnormality in the abdomen or pelvis. Diffuse hepatic steatosis. IUD. ATED BY: ANALISA SOTELO MD DICTATED DATE/TIME: 02/23/252238 SIGNED BY: ANALISA SOTELO MD SIGNED DATE/TIME: 02/23/252238 CC: Discharged With: Self Critical Care Note Critical Care Time?: No I personally scribed for RY SIFUENTES DO ([email or web address]) on 02/23/25 at 21:55. Electronically submitted by Emma Rangel (RIC). I personally scribed for RY SIFUENTES DO ([facility]) on 02/23/25 at 22:02. Electronically submitted by Emma Rangel (RIC). I personally scribed for RY SIFUENTES DO ([facility]) on 02/23/25 at 22:54. Electronically submitted by Emma Rangel (RIC). RY SIFUENTES DO Feb 23, 2025 21:55
[2025-02-23 22:25] LABS: Hematocrit 44.9 % (36.0-46.0); Hemoglobin 15.3 g/dL (12.2-16.2); Mean Corpuscular Hemoglobin 29.0 pg (28.0-32.0); Mean Corpuscular Volume 85.0 fL (80.0-100.0); Nucleated Red Blood Cells % 0.1 %
[2025-02-23 22:35] LABS: Alanine Aminotransferase 39 U/L (7-40); Albumin 4.8 g/dL (3.2-4.8); Anion Gap 10 (5-15); BUN/Creatinine Ratio 14.0 (10.0-20.0); Blood Urea Nitrogen 14 mg/dL (9-23); Calcium 9.3 mg/dL (8.7-10.4); Carbon Dioxide 26 mmol/L (20-31); Chloride 104 mmol/L (98-107); Glucose 93 mg/dL (74-106); Lipase 37 U/L (12-53); Potassium 4.1 mmol/L (3.5-5.1); Sodium 140 mmol/L (136-145); Total Protein 7.9 g/dL (5.7-8.2)
[2025-02-23 22:36] LABS: Bilirubin, Total 0.7 mg/dL (0.2-1.0)
[2025-02-23 22:37] LABS: Alkaline Phosphatase 129 U/L (46-116)
--- NOTE | 2025-02-23 22:42 | DVH ---
CLINICAL HISTORY: n/v/d abd pain TECHNIQUE: CT of the abdomen and pelvis was performed without IV contrast. This exam was performed ac cording to our departmental dose optimization program. Up-to-date CT equipment and radiation dose red uction techniques are utilized as appropriate. CTDI 15.1 DLP 968 COMPARISON: None FINDINGS: Abdomen/Pelvis: The spleen, pancreas, adrenal glands, kidneys, and gallbladder are grossly unremarkable. There is diffuse hepatic steatosis. An IUD is noted. The bladder is not well distended and therefore not well evaluated. The abdominal aorta is normal in course and caliber. There are no significant atherosclerotic calcifi cations. There is no free intraperitoneal air or fluid. There is no enlarged abdominal pelvic lymph node. There is no bowel wall thickening or dilatation. The appendix is normal. Other: The imaged lower thorax is unremarkable. No acute osseous abnormality is evident. Impression: No acute noncontrast CT abnormality in the abdomen or pelvis. Diffuse hepatic steatosis. IUD.
[2025-02-23 22:57] LABS: Urine Protein, UAD 1+ (Negative)
[2025-02-23 23:02] LABS: Amphetamine Screen, Urine Pos (NEGATIVE); Benzodiazephine Screen, Urine Pos (NEGATIVE)
[2025-02-23 23:06] LABS: Barbiturate Scree,Urine Neg (NEGATIVE); Cannabinoid Screen, Urine Neg (NEGATIVE); Cocaine Screen, Urine Neg (NEGATIVE); Opiate Scree,Urine Neg (NEGATIVE); Phencyclidine Screen, Urine Neg (NEGATIVE)
[2025-02-24 03:20] VITALS: BP 114/80; PULSE 84; RESP 20; TEMP 98.2; O2SAT 98
[2025-02-24] MEDS: SODIUM CHLORIDE 0.9% 1,000 ML IV ONE (03:40)
[2025-02-24] MEDS: ONDANSETRON HCL 4 MG/2 ML VIAL IV ONE (03:50)
== END 2025-02-24 03:56 | disposition home or self-care (01) ==
LOC: ER 21:22 → EEVIPCON 21:22 → ER 02-24 03:56
DX: R11.2 Nausea with vomiting, unspecified (principal); R19.7 Diarrhea, unspecified; F20.9 Schizophrenia, unspecified; F32.A Depression, unspecified; F41.9 Anxiety disorder, unspecified; J45.909 Unspecified asthma, uncomplicated; K29.70 Gastritis, unspecified, without bleeding; Z79.52 Long term (current) use of systemic steroids; Z79.899 Other long term (current) drug therapy
CPT/HCPCS: 36415; 74176; 80053; 80307; 81001; 83605; 83690; 85025

== ENCOUNTER 2025-05-11 06:22 | Emergency (ER) | payer BC, MEDICAID ==
[~2025-05-11] VITALS: Ht 172.7 cm; Wt 92.3 kg
--- NOTE | 2025-05-11 07:01 | ED.PDOC ---
GI ASSESSMENT HPI Comments 30-year-old female with PMHx schizophrenia, depression, anxiety, asthma presents to the ED with a chief complaint of nausea/vomiting onset 5 days. Patient states she has been experiencing nausea, vomiting, diarrhea, diffused abdominal pain for the past 5 days, after Thanksgiving dinner. She has been experiencing similar symptoms intermittently for the past couple of months, has seen PCP, was recommended to GI specialist, does not have appointment until October 2025. Denies fever, chills, headache, dizziness, hematemesis, melena, blood in stool, dysuria, hematuria, chest pain, shortness of breath. No other symptoms or modifying factors present at this time. 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[employer] 09/09/24 Prednisone (Prednisone) 20 Mg Tab, 20 MG PO BID, #14 MG Prov:FLACO HUGHES MD 01/21/24 Azithromycin (Azithromycin) 500 Mg Tab, 1 TAB PO DAILY, #7 TAB Prov:FLACO HUGHES MD 01/21/24 Albuterol Sulfate (Albuterol Sulfate) 0.083 % Neb, 1 VIAL NEB Q4HPRN, #50 VIAL Prov:NIKUNJ POTTER MD 12/20/23 Zuscfofsxcr-Huynpjdozkxt-Jfpkv (Trelegy Ellipta 100-62.5-25 Mcg/INH) 1 Aer Aer, 1 AER IN DAILY for 30 Days, #30 AER Prov:NIKUNJ POTTER MD 12/20/23 Reported Medications Sertraline Hcl (Sertraline Hcl) 100 Mg Tab, 1 TAB PO DAILY 12/19/23 Albuterol Sulfate (VENTOLIN MDI) 90 Mcg Ih, 90 MCG IN PRN, INH 12/19/23 Information Source: Patient, Relative (Mother) Mode of Arrival: Ambulatory Timing: Days Duration: Since onset Prehospital treatment: None Quality: Sharp Severity: Moderate Recent: None Recent Hx of: None Pain Location: Diffuse Modifying Factors: Nothing Associated sign and symptoms: Nausea, Vomiting, Diarrhea, Abdominal Pain Past Medical History PAST MEDICAL HISTORY: Anxiety, Asthma, Depression, Schizophrenia Surgical History: Denies all surgeries FISHER TRAWL NET History: No Pertinent FISHER TRAWL NET History Family History Family History: Unknown Social History Smoker: Non-Smoker Alcohol: Denies ETOH Use Drugs: Denies Drug Use Lives In: Home Constitutional: denies: chills, diaphoresis, fatigue, fever, malaise, sweats, weakness, others EENTM: denies: blurred vision, double vision, ear bleeding, ear discharge, ear drainage, ear pain, ear ringing, eye pain, eye redness, hearing loss, mouth pain, mouth swelling, nasal discharge, nose bleeding, nose congestion, nose pain, photophobia, tearing, throat pain, throat swelling, voice changes, others Respiratory: denies: cough, hemoptysis, orthopnea, SOB at rest, shortness of breath, SOB with excertion, stridor, wheezing, others Cardiovascular: denies: chest pain, dizzy spells, diaphoresis, Dyspnea on exertion, edema, irregular heart beat, left arm pain, lightheadedness, palpitations, PND, syncope, others Gastrointestinal: reports: abdominal pain, diarrhea, nausea, vomiting; denies: abdomen distended, blood streaked bowels, constipated, dysphagia, difficulty swallowing, hematemesis, melena, poor appetite, poor fluid intake, rectal bleeding, rectal pain, others Genitourinary: denies: abnormal vagina bleeding, burning, dyspareunia, dysuria, flank pain, frequency, hematuria, incontinence, pain, , vagina discharge, urgency, others Neurological: denies: dizziness, fainting, headache, left sided numbness, left sided weakness, numbness, paresthesia, pre-existing deficit, right sided numbness, right sided weakness, seizure, speech problems, tingling, tremors, weakness, others Musculoskeletal: reports: back pain; denies: gout, joint pain, joint swelling, muscle pain, muscle stiffness, neck pain, others Integumetry: denies: bruises, change in color, change in hair/nails, dryness, laceration, lesions, lumps, rash, wounds, others Allergic/Immunocompromised: denies: Difficulty Healing, Frequent Infections, Hives, Itching, others Hematologic/Lymphatic: denies: anemia, blood clots, easy bleeding, easy bruising, swollen glands, others Endocrine: denies: excessive hunger, excessive sweating, excessive thirst, excessive urination, flushing, intolerance to cold, intolerance to heat, unexplained weight gain, unexplained weight loss, others Psychiatric: denies: anxiety, bipolar disorder, depression, hopeless, panic disorder, schizophrenia, sleepless, suicidal, others All Other Systems: Reviewed and Negative Physical Exam General Appearance: Moderate Distress, Normal HEENT: Normal ENT Inspection, Pharynx Normal, TMs Normal Neck: Full Range of Motion, Non-Tender, Normal, Normal Inspection Respiratory: Chest Non-Tender, Lungs Clear, No Accessory Muscle Use, No Respiratory Distress, Normal Breath Sounds Cardiovascular: No Edema, No JVD, No Murmur, No Gallop, Normal Peripheral Pulses, Regular Rate/Rhythm Breast Exam: Deferred Gastrointestinal: No Organomegaly, Non Tender, No Pulsatile Mass, Normal Bowel Sounds, Soft Genitalia: Deferred Pelvic: Deferred Rectal: Deferred Extremities: No calf tenderness, Normal capillary refill, Normal inspection, Normal range of motion, Non-tender, No pedal edema Musculoskeletal : Apperance: Normal Neurologic: Alert, home energy rater II-XII nml as Tested, No Motor Deficits, Normal Affect, Normal Mood, No Sensory Deficits Cerebellar Function: Normal Reflexes: Normal Skin: Dry, Normal Color, Warm Peripheral Pulses: 3+ Radial (R), 3+ Radial (L) Lymphatic: No Adenopathy Was a procedure done? Was a procedure done?: No GI differential Dx Differential Diagnosis: Constipation, Diverticular disease, Esophagitis, Gastritis/PUD, Gastroenteritis X-Ray, Labs, Meds, VS Vital Signs Date Time Temp Pulse Resp B/P (MAP) Pulse Ox O2 Delivery O2 Flow Rate FiO2 05/11/25 08:22 80 16 125/89 05/11/25 07:56 98.4 80 16 125/89 (101) 99 98.4 05/11/25 06:30 98.6 78 20 127/83 98 98.6 Lab Test 05/11/25 07:13 05/11/25 07:00 Range/Units White Blood Count 9.6 4.4-10.8 10^3/uL Red Blood Count 5.01 4.0-5.20 10^6/uL Hemoglobin 14.5 12.2-16.2 g/dL Hematocrit 43.4 36.0-46.0 % Mean Corpuscular Volume 86.7 80.0-100.0 fL Mean Corpuscular Hemoglobin 29.0 28.0-32.0 pg Mean Corpuscular Hemoglobin Concent 33.5 32.0-36.0 g/dL Red Cell Distribution Width 14.7 H 11.8-14.3 % Platelet Count 218 140-450 10^3/uL Mean Platelet Volume 10.2 6.9-10.8 fL Neutrophils (%) (Auto) 80.0 37.0-80.0 % Lymphocytes (%) (Auto) 12.7 10.0-50.0 % Monocytes (%) (Auto) 6.2 0.0-12.0 % Eosinophils (%) (Auto) 0.9 0.0-7.0 % Basophils (%) (Auto) 0.2 0.0-2.0 % Neutrophils # (Auto) 7.7 1.6-8.6 10 ^3/uL Lymphocytes # (Auto) 1.2 0.4-5.4 10 ^3/uL Monocytes # (Auto) 0.6 0-1.3 10 ^3/uL Eosinophils # (Auto) 0.1 0-0.8 10 ^3/uL Basophils # (Auto) 0 0-0.2 10 ^3/uL Nucleated Red Blood Cells 0.0 % Sodium Level 142 136-145 mmol/L Potassium Level 3.8 3.5-5.1 mmol/L Chloride Level 108 H 98-107 mmol/L Carbon Dioxide Level 23 20-31 mmol/L Anion Gap 11 5-15 Blood Urea Nitrogen 9 9-23 mg/dL Creatinine 0.85 0.550-1.02 mg/dL Glomerular Filtration Rate Calc 96 >90 mL/min BUN/Creatinine Ratio 10.6 10.0-20.0 Serum Glucose 89 74-106 mg/dL Calcium Level 9.1 8.7-10.4 mg/dL Total Bilirubin 0.5 0.2-1.0 mg/dL Aspartate Amino Transferase (AST) 19 13-40 U/L Alanine Aminotransferase (ALT) 49 H 7-40 U/L Alkaline Phosphatase 117 H 46-116 U/L Total Protein 7.5 5.7-8.2 g/dL Albumin 4.4 3.2-4.8 g/dL Urine Color Yellow Yellow Urine Clarity Clear Clear Urine pH 5.5 5.0-9.0 Urine Specific [place] 1.022 1.001-1.035 Urine Protein Trace H Negative Urine Ketones Negative Negative Urine Blood Negative Negative /uL Urine Nitrite Negative Negative Urine Bilirubin Negative Negative Urine Urobilinogen Normal Negative mg/dL Urine Leukocyte Esterase Negative Negative /uL Urine RBC 1 0 - 4 /hpf Urine Microscopic WBC 2 0-5 /HPF Urine Squamous Epithelial Cells Few <5 /hpf Urine Bacteria None seen None Seen /hpf Urine Mucus Few None Seen Urine Glucose Normal Normal mg/dL Current Medications Medications (Trade) Dose Ordered Sig/Kasandra Route Start Time Stop Time Status Last Admin Sodium Chloride 1,000 ml @ 1,000 mls/hr Q1H ONCE IV 05/11/25 07:00 05/11/25 07:59 DC 05/11/25 08:09 Ondansetron HCl (Zofran) 4 mg ONCE ONCE IV 05/11/25 07:00 05/11/25 07:01 DC 05/11/25 08:24 Morphine Sulfate 4 mg ONCE ONCE IV 05/11/25 07:00 05/11/25 07:01 DC 05/11/25 08:22 Patient alert. Came in because of nausea vomiting. Has been having these symptoms for many months. Vitals stable. Waiting for GI consultation. Establish intravenous access. Was given fluids. Was given morphine. Was given Zofran. CT scan of the abdomen does show enteritis. She was given prescription of Flagyl antibiotic. Explained to the patient. Was told to follow up with her primary care physician. Was told to come back if there is any problem. Time of 1ST Reevaluation: 07:20 Reevaluation 1ST: Unchanged Patient Education/Counseling: Diagnosis, Treatment, Prognosis Family Education/Counseling: Diagnosis, Treatment, Prognosis SEPSIS Sepsis Screen Date sepsis recognized/suspect: May 11, 2025 Time Sepsis recognized/suspect: 06 Recent Procedure: No On Antibiotic Therapy: No Respiratory Rate >20: No Heart Rate >90: No Temp<36 C (96.8 F) or >38.3 C: No SBP <90 or MAP <65 mmHG: No New Acute Mental Status Change: No Is the patient on CPAP, BIPAP,: No Physician Orders Ct Ab Pel Wo Con-No Oral Or Iv (05/11/25 06:58) Vital Signs Date Time Temp Pulse Resp B/P (MAP) Pulse Ox O2 Delivery O2 Flow Rate FiO2 05/11/25 08:22 80 16 125/89 05/11/25 07:56 98.4 80 16 125/89 (101) 99 98.4 05/11/25 06:30 98.6 78 20 127/83 98 98.6 Laboratory Tests Test 05/11/25 07:13 White Blood Count 9.6 10^3/uL (4.4-10.8) Medications Medications Dose Ordered Sig/Kasandra Route Start Time Stop Time Status Last Admin Dose Admin Morphine Sulfate 4 mg ONCE ONCE IV 05/11/25 07:00 05/11/25 07:01 DC 05/11/25 08:22 Ondansetron HCl 4 mg ONCE ONCE IV 05/11/25 07:00 05/11/25 07:01 DC 05/11/25 08:24 Sodium Chloride 1,000 ml @ 1,000 mls/hr Q1H ONCE IV 05/11/25 07:00 05/11/25 07:59 DC 05/11/25 08:09 Departure 1 Departure Time of Disposition: 07:07 Impression: Primary Impression: Nausea vomiting and diarrhea Additional Impression: Gastroenteritis Disposition: 01 HOME / SELF CARE / HOMELESS Condition: Good e-Prescriptions Ondansetron Odt 4MG Tab (ZOFRAN PO) 4 Mg Tb 4 MG PO DAILY for 7 Days, #7 TAB ODT TAB-DISSOLVE IN MOUTH, THEN SWALLOW Prov: UMU ALMANZAR MD 05/11/25 Metronidazole (Flagyl) 500 Mg Tab 1 TAB PO TID for 7 Days, #21 TAB Prov: UMU ALMANZAR MD 05/11/25 Discharged With: Self Critical Care Note Critical Care Time?: No Stability Stability form required: No Heart Score Heart Score: Heart Score Response (Comments) Value History N/A 0 EKG N/A 0 Age N/A 0 Risk Factors N/A 0 Troponin N/A 0 Total 0 I personally scribed for UMU ALMANZAR MD ([email or web address]) on 05/11/25 at 07:01. Electronically submitted by Yumiko Ornelas ([email or web address]). UMU ALMANZAR MD May 11, 2025 07:01
[2025-05-11 07:33] LABS: Urine Protein, UAD TRACE (Negative)
[2025-05-11 07:44] LABS: Hematocrit 43.4 % (36.0-46.0); Hemoglobin 14.5 g/dL (12.2-16.2); Mean Corpuscular Hemoglobin 29.0 pg (28.0-32.0); Mean Corpuscular Volume 86.7 fL (80.0-100.0); Nucleated Red Blood Cells % 0.0 %
[2025-05-11 07:56] VITALS: TEMP 98.4; O2SAT 99
[2025-05-11 07:56] LABS: Albumin 4.4 g/dL (3.2-4.8); Anion Gap 11 (5-15); BUN/Creatinine Ratio 10.6 (10.0-20.0); Bilirubin, Total 0.5 mg/dL (0.2-1.0); Calcium 9.1 mg/dL (8.7-10.4); Carbon Dioxide 23 mmol/L (20-31); Glucose 89 mg/dL (74-106); Potassium 3.8 mmol/L (3.5-5.1); Sodium 142 mmol/L (136-145); Total Protein 7.5 g/dL (5.7-8.2)
[2025-05-11 07:57] LABS: Alanine Aminotransferase 49 U/L (7-40); Alkaline Phosphatase 117 U/L (46-116); Blood Urea Nitrogen 9 mg/dL (9-23); Chloride 108 mmol/L (98-107)
--- NOTE | 2025-05-11 07:57 | DVH ---
CLINICAL INFORMATION: Abdominal pain. Enteritis. TECHNIQUE: Axial CT images of the abdomen and pelvis were obtained without IV contrast. Coronal and sagittal reformatted images were obtained, reviewed, and stored. Evaluation of the parenchymal organs is limited without IV contrast. Evaluation of the bowel and mesentery is limited without oral contrast. All CT scans at this medical facility are performed using dose modulation techniques as appropriate to a performed exam including the following: Automated exposure control was utilized; adjustment of the MA and/or KV according to patient size; and use of iterative reconstruction technique. CTDIvol = 11.78 mGy DLP = 644.60 mGy-cm COMPARISON: CT CT AB PEL WO CON-NO ORAL OR IV on DOS: 02/23/25 FINDINGS: Lung bases: Lung bases are clear. Liver: Hepatic steatosis. Biliary: No calcified gallstones or biliary ductal dilatation. Spleen: Unremarkable. Pancreas: Grossly unremarkable in its noncontrast enhanced appearance. Adrenal glands: Unremarkable. No mass. Kidneys: No hydronephrosis. No renal or ureteral calculi. Aorta/Vascular: No aneurysm or significant calcification. Lymph nodes: No mass or lymphadenopathy. Bowel/mesentery: Nonspecific mildly distended fluid-filled small bowel loops with no transition point to suggest small bowel obstruction. Appendix is visualized and appears unremarkable. Moderate stool in the colon. Pelvic organs: Uterus is anteverted. IUD in the fundal endometrial canal, in expected position. Fluid density structure in the left adnexal region measuring up to 3 cm, likely ovarian cyst. Bladder: Underdistended and not well evaluated. Abdominal wall: No mass or hernia. Bones: No acute fracture or suspicious intraosseous lesion. IMPRESSION: 1. Nonspecific mildly distended fluid-filled small bowel loops. Findings may be seen with ileus or enteritis in the appropriate clinical setting. No small bowel obstruction. 2. Hepatic steatosis. 3. Fluid density structure in the left adnexa, likely ovarian cyst. Correlate with clinical findings. If clinically indicated, pelvic ultrasound may be helpful to further characterize. 4. IUD within the fundal endometrial canal, in expected position. 5. Moderate stool in the colon. 6. Additional findings as detailed above.
[2025-05-11] MEDS: SODIUM CHLORIDE 0.9% 1,000 ML IV ONE (08:09)
[2025-05-11] MEDS: MORPHINE SULFATE 4 MG/ML SYR/VIAL IV ONE (08:22)
[2025-05-11] MEDS: ONDANSETRON HCL 4 MG/2 ML VIAL IV ONE (08:24)
[2025-05-11] MEDS ORDERED: METR-344 PO (08:45)
[2025-05-11] MEDS ORDERED: ZOFR4T PO (08:45)
[2025-05-11 09:43] VITALS: BP 131/79; PULSE 78; RESP 19
== END 2025-05-11 09:51 | disposition home or self-care (01) ==
LOC: EEVIPCON 06:22 → ER 06:22
DX: K52.9 Noninfective gastroenteritis and colitis, unspecified (principal); R11.2 Nausea with vomiting, unspecified; F41.9 Anxiety disorder, unspecified; F32.A Depression, unspecified; F20.9 Schizophrenia, unspecified; J45.909 Unspecified asthma, uncomplicated; Z79.899 Other long term (current) drug therapy; Z79.52 Long term (current) use of systemic steroids
CPT/HCPCS: 36415; 74176; 80053; 81001; 85025; 96361; 96374; 96375; 99285; J2270; J2405; J7030